=== PATIENT | female | born 1985 | race American Indian/Alaskan Native ===

== ENCOUNTER 2017-01-09 19:42 | Emergency (ER) | payer OTHER ==
[2017-01-09 20:00] VITALS: BP 117/78
[2017-01-09 20:31] LABS: Basophils % (Auto) 1.4 % (0.0-1.8); Eosinophils % (Auto) 3.9 % (0.0-4.3); Hematocrit 32.8 % (30.3-42.9); Hemoglobin 11.1 gm/dl (10.1-14.3); Mean Corpuscular HGB Conc 34 % (30-34); Mean Corpuscular Hemoglobin 32 pg (28-32); Mean Corpuscular Volume 96 fl (79-97); Platelet Count 247 K/mm3 (140-440); Red Blood Count 3.43 M/mm3 (3.65-5.03); Red Cell Distribution Width 12.8 % (13.2-15.2); White Blood Count 6.3 K/mm3 (4.5-11.0)
[2017-01-09 20:43] LABS: Bacteria,Urine 1+ /HPF (Negative); Bilirubin,Urine NEG (Negative); Blood,Urine NEG (Negative); Ketones,Urine NEG (Negative); Leukocyte Esterase,Urine LG (Negative); Nitrite,Urine NEG (Negative); Protein,Urine <15 mg/dL mg/dL (Negative); Urobilinogen,Urine < 2.0 mg/dL (<2.0)
[2017-01-09 20:47] LABS: Alanine Aminotransferase 12 units/L (7-56); Albumin/Globulin Ratio 1.4 %; Alkaline Phosphatase 57 units/L (35-129); Anion Gap 18 mmol/L; Bilirubin,Total < 0.20 mg/dL (0.1-1.2); Blood Urea Nitrogen 16 mg/dL (7-17); Calcium 9.8 mg/dL (8.4-10.2); Carbon Dioxide 21 mmol/L (22-30); Chloride 97.8 mmol/L (98-107); Glucose 95 mg/dL (65-100); Lipase 47 units/L (13-60); Potassium 3.8 mmol/L (3.6-5.0); Sodium 133 mmol/L (137-145); Total Protein 6.9 g/dL (6.3-8.2)
== END 2017-01-09 22:10 ==
LOC: ED 19:42
DX: R10.9 Unspecified abdominal pain (principal); Z53.21 Procedure and treatment not carried out due to patient leaving prior to being seen by health care provider
CPT/HCPCS: 36415; 80053; 81001; 83690; 84703; 85025

== ENCOUNTER 2017-08-09 22:27 | Outpatient (CLI) | payer OTHER ==
[2017-08-09] MEDS ORDERED: LACTATED RINGERS 1,000 ML ONE (23:34)
[2017-08-10] MEDS ORDERED: LACTATED RINGERS 1,000 ML IV SCH (00:15)
[2017-08-10] MEDS ORDERED: VISTARIL PO ONE (01:04)
== END 2017-08-10 02:05 | disposition home or self-care (01) ==
LOC: TRG 22:27
PROVIDERS: ATTEND Obstetrics & Gynecology
DX: O62.9 Abnormality of forces of labor, unspecified (principal); Z3A.37 37 weeks gestation of pregnancy
CPT/HCPCS: 59025; 96360; J7120; Q0177

== ENCOUNTER 2017-08-25 20:11 | Outpatient (CLI) | payer OTHER ==
--- NOTE | 2017-08-25 23:31 | Ultrasound Report ---
FINAL REPORT PROCEDURE: US OB LIMITED TECHNIQUE: Real-time limited sonographic examination was performed for evaluation of amniotic fluid index for each fetus with image documentation (1 or more fetuses). CPT 36566 HISTORY: WELL BEING, VANIA COMPARISON: No prior studies are available for comparison. FINDINGS: There is single intrauterine gestation with a heart rate of 134 beats per minute. Amniotic fluid index is 21.8 centimeters. IMPRESSION: Single live intrauterine gestation with an amniotic fluid index of 21.8 centimeters.
--- NOTE | 2017-08-25 23:32 | Ultrasound Report ---
FINAL REPORT PROCEDURE: US OB BPP WO NON-STRESS TECHNIQUE: Sonographic evaluation for breathing, movement, tone, and amniotic fluid volume was performed. CPT 16202 HISTORY: WELL BEING, VANIA COMPARISON: No prior studies are available for comparison. FINDINGS: Single live intrauterine gestation is noted with a heart rate of 132 beats per minute. Amniotic fluid volume: Normal-score 2. At least one vertical pocket > 2 cm or more in vertical axis. breathing: Normal-score 2. movement: Normal-score 2. tone: Normal. Score: 8 of 8. IMPRESSION: Normal biophysical profile.
[2017-08-26] MEDS ORDERED: VISTARIL PO ONE (00:51)
== END 2017-08-26 01:10 | disposition home or self-care (01) ==
LOC: TRG 20:11
PROVIDERS: ATTEND Obstetrics & Gynecology
DX: O48.0 Post-term pregnancy (principal); Z3A.40 40 weeks gestation of pregnancy
CPT/HCPCS: 59025; 76815; 76819; Q0177